=== PATIENT | male | born 1945 | race Caucasian/White ===

== ENCOUNTER 2022-02-12 09:05 | Inpatient (IN) | payer MEDICARE, OTHER ==
[~2022-02-12] VITALS: Ht 165.1 cm; Wt 91.2 kg
--- NOTE | 2022-02-12 09:07 | NUR ---
RECIVED PT AWAKE AND ALERT CAME FROM HD CENTER C/O N/V AND CHEST PAIN AFTER COMPLET HD
--- NOTE | 2022-02-12 09:08 | NUR ---
TELE PEER HEALTH PROMOTER AT BEDSIDE.
--- NOTE | 2022-02-12 09:10 | NUR ---
AT BEDSIDE FOR EVAL.
[2022-02-12] MEDS ORDERED: ONDANSETRON HCL/PF 4 MG/2 ML VIAL ONE (09:20)
--- NOTE | 2022-02-12 09:20 | NUR ---
PT HAD PREMACATHER ON LT SUBCLEAVIN
--- NOTE | 2022-02-12 09:25 | NUR ---
EKG DONE AT BED BLOOD DROW AND SENT TO LAB
[2022-02-12] MEDS ORDERED: ONDANSETRON HCL/PF - ER 4 MG/2 ML VIAL IV ONE (09:30)
[2022-02-12 09:34] LABS: BASOPHILS # (AUTO) 0.1 K/uL (0.0-0.2); BASOPHILS % (AUTO) 0.8 % (0.0-2.0); EOSINOPHILS % (AUTO) 5.2 % (0.0-6.0); HEMATOCRIT 37 % (39-51); HEMOGLOBIN 12.7 g/dL (13.5-17.5); LYMPHOCYTES # (AUTO) 2.3 K/uL (0.8-4.8); LYMPHOCYTES % (AUTO) 27.2 % (20.0-44.0); MEAN CORPUSCULAR HGB CONC 34 g/dl (31.0-36.0); MEAN CORPUSCULAR VOLUME 88 fL (80-96); MONOCYTES # (AUTO) 0.5 K/uL (0.1-1.30); MONOCYTES % (AUTO) 5.7 % (2.0-12.0); NEUTROPHILS # (AUTO) 5.1 K/uL (1.8-8.9); NEUTROPHILS % (AUTO) 61.1 % (43.0-81.0); PLATELET COUNT (AUTO) 208 K/uL (150-450); WHITE BLOOD COUNT (AUTO) 8.3 K/uL (4.3-11.0)
[2022-02-12 09:41] LABS: CALCIUM, SERUM 8.3 mg/dL (8.5-10.1); CARBON DIOXIDE 29 mmol/L (21-32); CHLORIDE 102 mmol/L (98-107); GLUCOSE 115 mg/dL (74-106); POTASSIUM 3.7 mmol/L (3.5-5.1); SODIUM SERUM 141 mmol/L (136-145); UREA NITROGEN, BLOOD 40 mg/dL (7-18)
--- NOTE | 2022-02-12 09:52 | NUR ---
ACUTE CARE PHYSICIAN AT BEDSIDE
--- NOTE | 2022-02-12 10:05 | NUR ---
RAPID COVID SWAB DONE AND SENT TO LAB
--- NOTE | 2022-02-12 10:17 | NUR ---
ABI FOR LAB REASULT
--- NOTE | 2022-02-12 10:48 | NUR ---
PAGED EPIC MANAGER ACCESS.
[2022-02-12] MEDS ORDERED: ISOS10TA2 PO (10:50)
[2022-02-12] MEDS ORDERED: TICA90TA PO (10:50)
[2022-02-12] MEDS ORDERED: HYDR-4075 PO (10:50)
[2022-02-12] MEDS ORDERED: METO25TA4 PO (10:50)
[2022-02-12] MEDS ORDERED: SEVE800T8 PO (10:50)
[2022-02-12] MEDS ORDERED: ATOR40TA PO (10:50)
[2022-02-12] MEDS ORDERED: AMLO-212 PO (10:50)
[2022-02-12] MEDS ORDERED: FENO145T21 PO (10:50)
[2022-02-12] MEDS ORDERED: ASPI-1169 PO (10:50)
[2022-02-12] MEDS ORDERED: NITR0.4T48 PO (10:50)
[2022-02-12] MEDS ORDERED: CINA30TA6 PO (10:54)
--- NOTE | 2022-02-12 11:03 | NUR ---
ABI FOR LAB RESULT AND DISPO
[2022-02-12] MEDS ORDERED: ACETAMINOPHEN 325 MG TABLET PO PRN (11:30)
[2022-02-12] MEDS ORDERED: ONDANSETRON HCL/PF 4 MG/2 ML VIAL IVP PRN (11:30)
[2022-02-12] MEDS ORDERED: HEPARIN SODIUM, PORCINE 5000 UNITS/1 ML VIAL SQ SCH (11:30)
--- NOTE | 2022-02-12 11:36 | NUR ---
MRSA SENT TO LAB
--- NOTE | 2022-02-12 11:55 | NUR ---
SISTER AT BED SIDE CONDITION UP DATE
[2022-02-12] MEDS ORDERED: ASPIRIN 325 MG TABLET ONE (11:59)
[2022-02-12] MEDS ORDERED: ASPIRIN 325 MG TABLET PO ONE (12:00)
--- NOTE | 2022-02-12 12:06 | NUR ---
ROOM [facility]
--- NOTE | 2022-02-12 12:13 | NUR ---
GOING TO ROOM 321 TELMETER AND HAND OF TO CLARENCE RN VS STABLE NO CHEST PAIN
--- NOTE | 2022-02-12 12:18 | NUR ---
ECC CARDIO GRAM DONE AT BED SIDE
[2022-02-12] MEDS ORDERED: NITROGLYCERIN 0.4 MG/TAB BOTTLE SL PRN (12:30)
--- NOTE | 2022-02-12 13:00 | NUR ---
ORDER EXPEDITER ADMITTING NOTES: ADMITTED A 76YO MALE PATIENT TO UNIT @1300 VIA GURNEY ACCOMPANIED BY ER TRANSPORTER. SISTER AT BED SIDE METEOROLOGICAL AIDE.WITH DX TO RULE OUT ACS. NO SOB NOTED, ON ROOM AIR, NOTED WITH NORMAL UNLABORED BREATHING PATTERN, PATIENT VERBALIZED HE HAS TOLERABLE CHEST PAIN AT THIS TIME, PATIENT DID NOT ASK FOR PAIN MEDS. PATIENT ALERT AND ORIENTED X3 AND ABLE TO VERBALIZED NEEDS. ORIENTED TO STAFFS AND UNIT, DEMONSTRATED HOW TO USE CALL LIGHT AND BED CONTROL PATIENT VERBALIZED UNDERSTANDING. PATIENT NOTED WITH IV ACCESS ON RIGHT HAND G#20 SALINE LOCKED, PATENT,INTACT AND FLUSHES WELL. ABDOMEN SOFT AND NON-TENDER, BOWEL SOUNDS PRESENT ON 4 QUADRANTS, LUNG SOUND CLEAR UPON AUSCULTATION. SKIN IS WARM AND DRY. SKIN IS INTACT, NOTED WITH RIGHT UPPER CHEST PERMACATH FOR HD.ON EXTERNAL TERRITORY SERVICE REPRESENTATIVE WITH CURRENT READING SINUS RHYTHM @88 BPM. SAFETY MEASURES IMPLEMENTED: BED PLACED IN LOWEST AND LOCKED POSITION, SIDE RAILS UP X 2. BED SIDE AND CALL LIGHT IN EASY REACH. WILL MONITOR PATIENT ACCORDINGLY. KEPT RESTED AND COMFORTABLE.
[2022-02-12] MEDS: hydrALAZINE HCL 10 MG TABLET PO SCH ×2 (13:15→17:11)
[2022-02-12] MEDS: SEVELAMER CARBONATE 800 MG TABLET PO SCH ×2 (13:16→17:12)
[2022-02-12] MEDS: ISOSORBIDE DINITRATE (10MG) 10 MG TABLET PO SCH ×2 (13:16→17:13)
[2022-02-12 14:01] VITALS: BP 152/100
[2022-02-12 16:00] VITALS: BP 132/83
[2022-02-12] MEDS: TICAGRELOR 90 MG TABLET PO SCH (17:10)
[2022-02-12] MEDS: ATORVASTATIN 40 MG TABLET PO SCH (17:12)
--- NOTE | 2022-02-12 18:00 | NUR ---
RN NOTES: MS NAVARRO, ABLE TO EXPLAIN THE PROCEDURE (CTCA) AND SIGNED CONSENT. SIGNED CONSENT SECURED IN PT'S CHART.
--- NOTE | 2022-02-12 18:56 | NUR ---
DROP WIRE ALIGNER CLOSING NOTES: PATIENT IN BED WITH AT BED SIDE AT THIS TIME, WALLISIAN SPEAKING ABLE TO UNDERSTAND AND SPEAK A LITTLE BIT BELARUSIAN. A/O X3, ABLE TO VERBALIZED NEEDS. NO SOB OR CARDIAC DISTRESS NOTED, ON ROOM AIR AND TOLERATING WELL. NOTED WITH RUC IJ TUNNEL CATHETER FOR HD INTACT. IV ACCESS ON RIGHT HAND G#20 PATENT AND INTACT, FLUSHES WELL. DENIES ANY PAIN AT THIS TIME. SAFETY PRECAUTIONS MAINTAINED: BED IN LOWEST AND LOCKED POSITION, SIDE RAILS UP X2. CALL LIGHT AND BED SIDE TABLE IN EASY REACH. ENDORSED TO SHAMPOO TECHNICIAN NURSE FOR CONTINUITY OF CARE.
--- NOTE | 2022-02-12 19:33 | NUR ---
RN NOTES: CALLED RADIOLOGY DEPT, SPOKE TO GROVER REGARDING PT'S CTCA- PER STRATEGIC COMMUNICATIONS MANAGER FOLLOW UP IN AM TOMORROW,ENDORSED TO NIGHT NURSE VINH.
--- NOTE | 2022-02-12 19:42 | NUR ---
RN OPENING NOTE PATIENT AWAKE IN BED, SPOUSE AT BEDSIDE. A/OX4. NO S/S OF DISTRESS, BREATHING W/O DIFFICULTY ON ROOM AIR. R-HAND #20 SL INTACT AND PATENT. TELE MONITOR REVEALS SR82. SAFETY MEASURES IN PLACE: BED LOCKED, AT LOWEST POSITION, RAILS UP X3, CALL SMITH WITHIN REACH. WILL CONTINUE TO MONITOR PATIENT. Addendum: 02/12/22 at 1954 by VINH LOPEZ RN CORRECTION: TELE MONITOR REVEALS SR 96
[2022-02-12 20:00] VITALS: BP 143/80
--- NOTE | 2022-02-12 23:15 | NUR ---
RN NOTE LAB CONTACTED RN TO REPORT TROPONIN RESULT OF 76. ON-CALL MD, DR. PARTIDA, NOTIFIED. PATIENT IS ALREADY SCHEDULED FOR ASPIRIN 81MG MED TREATMENT. MD ORDERS ARE TO REPEAT TROPONIN IN SIX (6) HOURS FROM LAST (SCHEDULED FOR 0400). PATIENT IS ON TELE MONITOR SR 77. NO CHEST PAIN OR ANY OTHER PAIN REPORTED BY PATIENT. PATIENT HAS BEEN IN PLEASANT MOOD. NO DIAPHORESIS PRESENT. WILL CONTINUE TO MONITOR PATIENT.
[2022-02-12 23:36] VITALS: BP 154/95
--- NOTE | 2022-02-13 01:00 | NUR ---
RN NOTE PATIENT NOTIFIED THIS RN THAT HE FELT SOMEWHAT SOB. OXIMETER WAS APPLIED AND REVEALED 96% ON ROOM AIR (PATIENT'S BASELINE). PATIENT REPORTED SOB BEGAN AROUND 0050. BP HAS BEEN STABLE W/ SBP AT 2000 BEING 150s AND 0000 BEING 140s. PATIENT IS NON-DIAPHORETIC. NO COMPLAINTS OF CHEST PAIN, HEADACHE, OR DIZZINESS. ELEVATED HOB TO PROMOTE EASEFUL BREATHING. PATIENT STATES HE IS OTHERWISE "OKAY". PATIENT ALREADY HAS MEDS IN PLACE FOR ANY POSSIBLE OCCURRENCES THAT WARRANT MED INTERVENTION; ELEVATED TROPONIN (76) ALREADY NOTIFIED TO ON-CALL MD. WILL CONTINUE TO MONITOR PATIENT.
[2022-02-13 04:04] VITALS: BP 148/95
[2022-02-13 05:32] LABS: BASOPHILS # (AUTO) 0.1 K/uL (0.0-0.2); BASOPHILS % (AUTO) 0.8 % (0.0-2.0); EOSINOPHILS % (AUTO) 4.6 % (0.0-6.0); HEMATOCRIT 37 % (39-51); HEMOGLOBIN 12.4 g/dL (13.5-17.5); LYMPHOCYTES # (AUTO) 2.6 K/uL (0.8-4.8); LYMPHOCYTES % (AUTO) 29.4 % (20.0-44.0); MEAN CORPUSCULAR HGB CONC 34 g/dl (31.0-36.0); MEAN CORPUSCULAR VOLUME 89 fL (80-96); MONOCYTES # (AUTO) 0.5 K/uL (0.1-1.30); MONOCYTES % (AUTO) 6.2 % (2.0-12.0); NEUTROPHILS # (AUTO) 5.2 K/uL (1.8-8.9); PLATELET COUNT (AUTO) 205 K/uL (150-450); RED BLOOD CELL COUNT(AUTO) 4.15 MIL/uL (4.5-6.0); WHITE BLOOD COUNT (AUTO) 8.9 K/uL (4.3-11.0)
[2022-02-13 05:43] LABS: CARBON DIOXIDE 28 mmol/L (21-32); CHLORIDE 105 mmol/L (98-107); CREATININE 6.9 mg/dL (0.6-1.3); GLUCOSE 96 mg/dL (74-106); MAGNESIUM 2.2 mg/dL (1.8-2.4); PHOSPHORUS 5.9 mg/dL (2.5-4.9); POTASSIUM 3.8 mmol/L (3.5-5.1); SODIUM SERUM 142 mmol/L (136-145); UREA NITROGEN, BLOOD 51 mg/dL (7-18)
--- NOTE | 2022-02-13 05:56 | NUR ---
RN NOTE LAB NOTIFIED THIS RN PATIENT'S NEWEST TROPONIN IS 80 (AND INCREASE FROM 2200's 76). ON-CALL MD, DR. PARTIDA, NOTIFIED. PATIENT IS SCHEDULED FOR ASPIRIN 81MG THIS MORNING @0900. MD ORDERED ANOTHER TROPONIN SIX (6) HOURS AFTER LAST (SCHEDULED FOR 1000 THIS MORNING). PATIENT HAS BEEN CLOSELY MONITORED. VS WNL; PATIENT DENIES CHEST PAIN, HEADACHE, DIZZINESS, AND IS NON-DIAPHORETIC. WILL CONTINUE TO MONITOR PATIENT.
[2022-02-13 06:06] LABS: CHOLESTEROL 260 mg/dL (<200); HDL CHOLESTEROL 42 mg/dL (40-60); LDL 158 mg/dL (0-99); TRIGLYCERIDES 232 mg/dL (30-150)
--- NOTE | 2022-02-13 07:30 | NUR ---
TELE OPENING NOTE PATIENT AWAKE IN BED. A/OX4. NO S/S OF DISTRESS/SOB ON ROOM AIR, TOLERATING WELL. R- HAND #20 SL INTACT AND PATENT. TELE MONITOR @ SR82. SAFETY MEASURES IN PLACE: BED LOCKED, AT LOWEST POSITION, RAILS UP X3, CALL SMITH WITHIN REACH. WILL CONTINUE TO MONITOR PATIENT.
--- NOTE | 2022-02-13 07:34 | NUR ---
RN CLOSING NOTE PATIENT ASLEEP IN BED. A/OX4. NO S/S OF DISTRESS, BREATHING W/O DIFFICULTY ON ROOM AIR. R-HAND #20 SL INTACT AND PATENT. TELE MONITOR REVEALS SB 59. SAFETY MEASURES IN PLACE: BED AT LOWEST POSITION, LOCKED, RAILS UP X2, CALL SMITH WITHIN REACH. REPORT GIVEN TO AND ACKNOWLEDGED BY DAY SHIFT RNEWA.
[2022-02-13] MEDS: CINACALCET HCL 30 MG TABLET PO SCH (09:10)
[2022-02-13] MEDS: SEVELAMER CARBONATE 800 MG TABLET PO SCH ×3 (09:12→17:16)
[2022-02-13] MEDS: ASPIRIN 81 MG TAB.CHEW PO SCH (09:12)
[2022-02-13] MEDS: AMLODIPINE BESYLATE 5 MG TABLET PO SCH (09:14)
[2022-02-13] MEDS: ISOSORBIDE DINITRATE (10MG) 10 MG TABLET PO SCH ×3 (09:14→17:17)
[2022-02-13] MEDS: hydrALAZINE HCL 10 MG TABLET PO SCH ×4 (09:15→17:18)
[2022-02-13] MEDS: TICAGRELOR 90 MG TABLET PO SCH ×2 (09:17→17:19)
[2022-02-13] MEDS: FENOFIBRATE NANOCRYS (145 MG) 145 MG TABLET PO SCH (09:19)
[2022-02-13] MEDS: METOPROLOL SUCCINATE 25 MG TAB.SR.24H PO SCH (09:20)
--- NOTE | 2022-02-13 10:05 | NUR ---
RIGGING LOFT MECHANIC NOTE: PT DROPPED MEDICATION ON THE FLOOR, MEDICATION DISCARDED PER FACILITY PROTOCOL, ANOTHER MED WAS PULLED FROM [facility] AND ADMINISTERED TO PT.
--- NOTE | 2022-02-13 10:50 | NUR ---
SERVICE ORDER CLERK NOTE PATIENT SEEN BY DR. MIRELES.
--- NOTE | 2022-02-13 11:50 | NUR ---
SYSTEM SUPPORT DEVELOPER NOTE SEEN BY DR. GORDON
--- NOTE | 2022-02-13 17:05 | NUR ---
RULING MACHINE SET UP OPERATOR NOTE BRILINTA 90 MG DROPPED BY RN ON FLOOR BY ACCIDENT, PULLED ANOTHER DOSE FROM PT CASSETTE, NOTIFIED PHARMACY FOR REPLACEMENT, DISPOSED MEDICATION PER HOSP PROTOCOL.
[2022-02-13] MEDS: ATORVASTATIN 40 MG TABLET PO SCH (17:18)
--- NOTE | 2022-02-13 19:28 | NUR ---
TELE OPENING NOTE PATIENT AWAKE IN BED. A/OX4. NO S/S OF DISTRESS/SOB ON ROOM AIR, TOLERATING WELL. R- HAND #20 SL INTACT AND PATENT. PT REFUSING TELE MONITOR AT THIS TIME.. SAFETY MEASURES IN PLACE: BED LOCKED, AT LOWEST POSITION, RAILS UP X3, CALL SMITH WITHIN REACH. WILL CONTINUE TO MONITOR PATIENT. Addendum: 02/13/22 at 1932 by SHARONA MORA RN PT HAS TELE MONITOR ON AT THIS TIME.
--- NOTE | 2022-02-13 19:38 | NUR ---
TELE CLOSING NOTE PATIENT AWAKE IN BED. A/OX4. NO S/S OF DISTRESS/SOB ON ROOM AIR, TOLERATING WELL. R- HAND #20 SL INTACT AND PATENT. TELE MONITOR @ SR82. SAFETY MEASURES IN PLACE: BED LOCKED, AT LOWEST POSITION, RAILS UP X3, CALL SMITH WITHIN REACH. WILL ENDORSE TO NEXT SHIFT FOR CONTINUITY OF CARE.
[2022-02-13 20:02] VITALS: BP 134/76
[2022-02-14 00:44] VITALS: BP 129/70
[2022-02-14 04:16] VITALS: BP 152/89
[2022-02-14 06:31] LABS: BASOPHILS # (AUTO) 0.1 K/uL (0.0-0.2); BASOPHILS % (AUTO) 0.6 % (0.0-2.0); EOSINOPHILS % (AUTO) 5.5 % (0.0-6.0); HEMATOCRIT 37 % (39-51); HEMOGLOBIN 12.5 g/dL (13.5-17.5); LYMPHOCYTES # (AUTO) 2.7 K/uL (0.8-4.8); LYMPHOCYTES % (AUTO) 28.6 % (20.0-44.0); MEAN CORPUSCULAR HGB CONC 34 g/dl (31.0-36.0); MEAN CORPUSCULAR VOLUME 89 fL (80-96); MONOCYTES # (AUTO) 0.7 K/uL (0.1-1.30); MONOCYTES % (AUTO) 7.2 % (2.0-12.0); NEUTROPHILS # (AUTO) 5.4 K/uL (1.8-8.9); NEUTROPHILS % (AUTO) 58.1 % (43.0-81.0); PLATELET COUNT (AUTO) 203 K/uL (150-450); RED BLOOD CELL COUNT(AUTO) 4.17 MIL/uL (4.5-6.0); WHITE BLOOD COUNT (AUTO) 9.3 K/uL (4.3-11.0)
--- NOTE | 2022-02-14 06:49 | NUR ---
TELE CLOSING NOTE PATIENT AWAKE IN BED. A/OX4. NO S/S OF DISTRESS/SOB ON ROOM AIR, TOLERATING WELL. R- HAND #20 SL INTACT AND PATENT. TELE MONITOR @ SR 80S. SAFETY MEASURES IN PLACE: BED LOCKED, AT LOWEST POSITION, RAILS UP X3, CALL SMITH WITHIN REACH. WILL ENDORSE TO NEXT SHIFT FOR CONTINUITY OF CARE.
[2022-02-14 07:03] LABS: CALCIUM, SERUM 7.9 mg/dL (8.5-10.1); CARBON DIOXIDE 24 mmol/L (21-32); CHLORIDE 105 mmol/L (98-107); GLUCOSE 94 mg/dL (74-106); MAGNESIUM 2.3 mg/dL (1.8-2.4); PHOSPHORUS 6.1 mg/dL (2.5-4.9); POTASSIUM 3.9 mmol/L (3.5-5.1); SODIUM SERUM 143 mmol/L (136-145); UREA NITROGEN, BLOOD 65 mg/dL (7-18)
--- NOTE | 2022-02-14 07:20 | NUR ---
SUCTION PLATE ROLLER HAND OPENING NOTE RECEIVED PATIENT ASLEEP IN BED, EASILY AROUSE. A/OX4, ABLE TO MAKE NEEDS KNOWN. ON RA, TOLERATING WELL. BREATHING EVEN AND UNLABORED. NOT IN ANY SIGN OF DISTRESS. R- HAND G #20 SL INTACT AND PATENT. R CHEST PERMA CATH INTACT. SAFETY MEASURES IN PLACE: BED LOCKED, AT LOWEST POSITION, RAILS UP X3, CALL SMITH WITHIN REACH. WILL CONTINUE TO MONITOR PATIENT. Addendum: 02/14/22 at 0734 by MARGE BECKETT RN ADDENDUM ON TELE TRAINING INTERN WITH CURRENT READING OF SR, HR 60. NO COMPLAINS OF CARDIAC DISCOMFORT OR DISTRESS VOICED AT THIS TIME.
[2022-02-14 07:44] LABS: CREATININE 8.2 mg/dL (0.6-1.3)
[2022-02-14 08:00] VITALS: BP 159/75
[2022-02-14] MEDS: FENOFIBRATE NANOCRYS (145 MG) 145 MG TABLET PO SCH (08:23)
[2022-02-14] MEDS: CINACALCET HCL 30 MG TABLET PO SCH (08:23)
[2022-02-14] MEDS: SEVELAMER CARBONATE 800 MG TABLET PO SCH ×3 (08:24→17:53)
[2022-02-14] MEDS: TICAGRELOR 90 MG TABLET PO SCH ×2 (08:30→17:55)
--- NOTE | 2022-02-14 08:30 | NUR ---
RN NOTE RECEIVED A CALL FROM [employer] AT 0743 REPORTED CRITICAL LAB VALUE OF CREATININE AT 8.2. DR. GORDON MADE OF AWARE OF CRITICAL LAB WITH NO NEW ORDER AT THIS TIME.
[2022-02-14] MEDS: ASPIRIN 81 MG TAB.CHEW PO SCH (09:13)
[2022-02-14] MEDS: ISOSORBIDE DINITRATE (10MG) 10 MG TABLET PO SCH ×3 (09:30→17:53)
[2022-02-14] MEDS: METOPROLOL SUCCINATE 25 MG TAB.SR.24H PO SCH (09:31)
[2022-02-14] MEDS: AMLODIPINE BESYLATE 5 MG TABLET PO SCH (09:31)
[2022-02-14] MEDS: hydrALAZINE HCL 10 MG TABLET PO SCH ×3 (09:32→17:53)
[2022-02-14 12:00] VITALS: BP 136/79
--- NOTE | 2022-02-14 14:04 | NUR ---
RN NOTE HYDRALAZINE AND ISOSORBIDE DUE AT 1300 NOT ADMINISTERED. PT IS ON ONGOING DIALYSIS.
--- NOTE | 2022-02-14 15:58 | NUR ---
RN NOTE PT COMPLAINED OF CHEST PAIN DURING HD. BLOOD PRESSURE WAS 165/118, HR 89. OXYGEN AT 2 LITERS/MIN VIA NASAL CANNULA APPLIED. SPO2 AT 94%. NITROGLYCERIN GIVEN O.4MG 1 TAB. AT 1545 AND EFFECTIVE AFTER 5MINUTES AT 1550. CURRENT BLOOD PRESSURE 103/78, HR 79. DR. GORDON MADE AWARE.
[2022-02-14 16:00] VITALS: BP 149/91
[2022-02-14] MEDS: ATORVASTATIN 40 MG TABLET PO SCH (17:52)
--- NOTE | 2022-02-14 19:29 | NUR ---
COMMUNICATIONS WRITER CLOSING NOTE PATIENT AWAKE IN BED WITH SISTER AT BEDSIDE. A/OX4, ABLE TO MAKE NEEDS KNOWN. ON RA, TOLERATING WELL. BREATHING EVEN AND UNLABORED. NOT IN ANY SIGN OF DISTRESS. ON TELE DEVOPS CONSULTANT WITH CURRENT READING OF NORMAL SR, HR 67. NO COMPLAINS OF CARDIAC DISCOMFORT OR DISTRESS VOICED AT THIS TIME. R- HAND G #20 SL INTACT AND PATENT. R CHEST PERMA CATH INTACT. ALL NEEDS ATTENDED. SAFETY MEASURES IN PLACE: BED LOCKED, AT LOWEST POSITION, RAILS UP X3, CALL SMITH WITHIN REACH. ENDORSED TO PORT SURVEYOR NURSE FOR SAMANTHA.
[2022-02-14 20:00] VITALS: BP 147/84
--- NOTE | 2022-02-14 20:05 | NUR ---
CERTIFIED FRAUD EXAMINER OPENING NOTES: RECEIVED PATIENT AWAKE IN BED , BED IN LOW POSITION CALL LIGHTS WITHIN REACH NO COMPLAIN OF PAIN AND DISCOMFORT AT THIS TIME ON ROOM AIR SATURATING WELL, ON TELE MONITORING SR-70, ON MONITORING FOR CHEST PAIN, WITH IV LINE AT RT HAND #20 SL ON HD TTH WITH RT CHEST PERMA CATH, HD DONE TODAY WITH 1500CC OUTPUT INTERRUPTED DUE TO CHEST PAIN, PATIENT KEPT CLEAN AND DRY ALL NEEDS MET WILL CONTINUE TO MONITOR.
--- NOTE | 2022-02-14 22:08 | NUR ---
RN NOTES: 2199 PATIENT WAS MOANING AND WE I CAME IN PATIENT WAS COMPLAINING OF PAIN WHILE WOOD CUT ENGRAVER CHECKS THE V/S BP-173/87 HE TOOK NITROGLYCERINE SUBLINGUAL AT 2004 WHILE CHECKING THE BP, PT HAS ONE IN POCKET, WAS RELIEVE WITH BP-147/87 HR-107, CALL CN TO CONVINCE PATIENT TO TURNOVER THE MEDICINE AND LET THE NURSE TAKE CARE OF IT EXPLAIN RISK AND BENEFITS BUT PATIENT REFUSED CN LOU WAS WITH ME WHEN ASKED FOR PATIENT MEDICINE, PATIENT WAS RELIEVE WITH PAIN WILL CONTINUE TO MONITOR
[2022-02-15] VITALS: BP 135/94
[2022-02-15 04:00] VITALS: BP 139/86
--- NOTE | 2022-02-15 07:01 | NUR ---
BUILDER OPERATOR CLOSING NOTES: PATIENT SLEEP IN BED COMFORTABLY, BED IN LOW POSITION, CALL LIGHTS WITHIN REACH, NO COMPLAIN OF PAIN AND DISCOMFORT AT THIS TIME, ON ROOM AIR SATURATING WELL, ON TELE MONITORING SR-60- WITH RIGHT PERMA CATH HD CLEAN AND DRY, PATIENT PLACE ON NPO FOR CT ANGIO, KEPT CLEAN AND DRY ALL NEEDS MET, ENDORSE TO INCOMING SHIFT.
--- NOTE | 2022-02-15 07:26 | NUR ---
SYSTEMS INTEGRATION ADVISOR OPENING NOTE RECEIVED PATIENT AWAKE IN BED IN NO ACUTE SIGNS OF DISTRESS. A/OX4. CITIZEN OF [place] SPEAKING, DENIES PAIN OR ANY DISCOMFORTS AT THIS TIME. ON RA, TOLERATING WELL, BREATHING EVEN AND UNLABORED, IV ACCESS ON R- HAND G #20 SL INTACT AND PATENT. RIGHT CHEST PERMA CATH INTACT. SAFETY MEASURES IN PLACED: BED LOCKED, AND AT LOWEST POSITION, RAILS UP X2, CALL SMITH WITHIN REACH. WILL CONTINUE TO MONITOR PATIENT. Addendum: 02/15/22 at 0740 by DELLA RAJAN RN ADDENDUM; PT ON EXTERNAL POOLROOM/POOLHALL MANAGER WITH CURRENT READING OF NSR, HR 61, NO C/O CARDIAC DISTRESS VOICED AT THIS TIME.
[2022-02-15 08:00] VITALS: BP 143/85
[2022-02-15] MEDS: SEVELAMER CARBONATE 800 MG TABLET PO SCH ×3 (08:00→17:08)
[2022-02-15 08:12] LABS: CARBON DIOXIDE 21 mmol/L (21-32); CHLORIDE 103 mmol/L (98-107); CREATININE 7.3 mg/dL (0.6-1.3); GLUCOSE 104 mg/dL (74-106); MAGNESIUM 2.3 mg/dL (1.8-2.4); POTASSIUM 4.1 mmol/L (3.5-5.1); SODIUM SERUM 143 mmol/L (136-145); UREA NITROGEN, BLOOD 52 mg/dL (7-18)
[2022-02-15 08:30] LABS: PHOSPHORUS 6.3 mg/dL (2.5-4.9)
[2022-02-15] MEDS: hydrALAZINE HCL 10 MG TABLET PO SCH ×3 (09:19→17:09)
[2022-02-15] MEDS: ASPIRIN 81 MG TAB.CHEW PO SCH (09:19)
[2022-02-15] MEDS: ISOSORBIDE DINITRATE (10MG) 10 MG TABLET PO SCH ×3 (09:20→17:09)
[2022-02-15] MEDS: AMLODIPINE BESYLATE 5 MG TABLET PO SCH (09:20)
[2022-02-15] MEDS: CINACALCET HCL 30 MG TABLET PO SCH (09:20)
[2022-02-15] MEDS: FENOFIBRATE NANOCRYS (145 MG) 145 MG TABLET PO SCH (09:20)
[2022-02-15] MEDS: METOPROLOL SUCCINATE 25 MG TAB.SR.24H PO SCH (09:20)
[2022-02-15] MEDS: TICAGRELOR 90 MG TABLET PO SCH ×2 (09:21→17:09)
--- NOTE | 2022-02-15 10:11 | NUR ---
RN NOTES PT PICKED-UP FOR CTCA BY LEGAL OFFICER MOOSE VIA WHEELCHAIR.
[2022-02-15] MEDS ORDERED: IOHEXOL-350 100 ML VIAL IV ONE (10:18)
[2022-02-15] MEDS ORDERED: METOPROLOL TARTRATE INJ 5 MG/5 ML AMPUL ONE (10:18)
[2022-02-15] MEDS ORDERED: NITROGLYCERIN 0.4 MG/TAB BOTTLE ONE (10:18)
[2022-02-15] MEDS ORDERED: CT SWABBABLE VALVE TRANS SET 1 EA INFUS.SET MC ONE (10:19)
[2022-02-15] MEDS ORDERED: IV NS 0.9% 250 ML IV ONE (10:19)
[2022-02-15 12:00] VITALS: BP 114/66
[2022-02-15 16:00] VITALS: BP 137/81
[2022-02-15] MEDS: ATORVASTATIN 40 MG TABLET PO SCH (17:07)
--- NOTE | 2022-02-15 18:45 | NUR ---
SENIOR SQL SERVER DATABASE DEVELOPER CLOSING NOTE PATIENT AWAKE IN BED WATCHING TV. NO ACUTE SIGNS OF DISTRESS. A/OX4. [place] SPEAKING, DENIES PAIN OR ANY DISCOMFORTS AT THIS TIME. STABLE ON RA, TOLERATING WELL, BREATHING EVEN AND UNLABORED, IV ACCESS ON R- HAND G #20 SL INTACT AND PATENT. RIGHT CHEST PERMA CATH INTACT. TELE MONITOR CURRENTLY READING NSR 78, NO C/O CARDIAC DISTRESS. ALL DUE MEDS GIVEN. SAFETY MEASURES MAINTAINED: BED LOCKED, AND AT LOWEST POSITION, RAILS UP X2, CALL SMITH WITHIN REACH. WILL CONTINUE TO MONITOR PATIENT. WILL ENDORSE TO NEXT SHIFT FOR SAMANTHA.
--- NOTE | 2022-02-15 19:21 | NUR ---
WIRE STITCHER OPERATOR OPENING RECEIVED PATIENT IN BED, A/OX4, GERMAN SPEAKING. 2 FAMILY MEMBERS AT BEDSIDE AT THIS TIME. NO S/S OF APPARENT DISTRESS IN ROOM AIR. DENIES PAIN AT THIS TIME. RCW PERMACATH NOTED TO BE INTACT. NO FLUIDS RUNNING AT THIS TIME. RE-ORIENTED AND ENCOURAGED WITH THE USE OF CALL LIGHT. SAFETY IN PLACE. WILL CONTINUE WITH PLAN OF CARE FOR PATIENT. DIALYSIS NURSE, RICH CAME IN TO REMIND PATIENT ABOUT EARLY DIALYSIS TOMORROW AND FOR DISCHARGE AFTERWARDS. PATIENT AND FAMILY MEMBERS AWARE AND ACKNOWLEDGED PLAN FOR PATIENT.
[2022-02-15 20:00] VITALS: BP 126/62
[2022-02-16] VITALS: BP 136/74
[2022-02-16 04:00] VITALS: BP 136/74
--- NOTE | 2022-02-16 05:28 | NUR ---
DIESEL DRAGLINE OPERATOR NOTE PATIENT CURRENTLY GETTING DIALYZE. SNEHA VILLANUEVA RN AT BEDSIDE.
[2022-02-16 06:07] LABS: BASOPHILS # (AUTO) 0.1 K/uL (0.0-0.2); BASOPHILS % (AUTO) 0.8 % (0.0-2.0); EOSINOPHILS % (AUTO) 6.6 % (0.0-6.0); HEMATOCRIT 36 % (39-51); HEMOGLOBIN 12.1 g/dL (13.5-17.5); LYMPHOCYTES # (AUTO) 2.7 K/uL (0.8-4.8); LYMPHOCYTES % (AUTO) 42.4 % (20.0-44.0); MEAN CORPUSCULAR HGB CONC 34 g/dl (31.0-36.0); MEAN CORPUSCULAR VOLUME 89 fL (80-96); MONOCYTES # (AUTO) 0.3 K/uL (0.1-1.30); MONOCYTES % (AUTO) 4.4 % (2.0-12.0); NEUTROPHILS # (AUTO) 2.9 K/uL (1.8-8.9); NEUTROPHILS % (AUTO) 45.8 % (43.0-81.0); PLATELET COUNT (AUTO) 201 K/uL (150-450); RED BLOOD CELL COUNT(AUTO) 4.03 MIL/uL (4.5-6.0); WHITE BLOOD COUNT (AUTO) 6.5 K/uL (4.3-11.0)
[2022-02-16 06:24] LABS: CALCIUM, SERUM 7.9 mg/dL (8.5-10.1); CARBON DIOXIDE 24 mmol/L (21-32); CHLORIDE 101 mmol/L (98-107); CREATININE 6.5 mg/dL (0.6-1.3); GLUCOSE 94 mg/dL (74-106); MAGNESIUM 2.1 mg/dL (1.8-2.4); PHOSPHORUS 4.7 mg/dL (2.5-4.9); SODIUM SERUM 138 mmol/L (136-145); UREA NITROGEN, BLOOD 51 mg/dL (7-18)
[2022-02-16] MEDS ORDERED: HYDROCODONE/APAP 5/325MG TABLET PO PRN (06:45)
--- NOTE | 2022-02-16 06:45 | NUR ---
EXPANSION ENVELOPE MAKER HAND NOTE PATIENT CURRENTLY GETTING DIALYZE AND STARTED C/O 7/10 PAIN IN THE L.FLANK. MESSAGED VALIDATION CONSULTANT DOCTOR HELGA, AND DOCTOR ORDERED NORCO 5 Q6 PRN AND KUB X-RAY. KUB ORDERED AFTER DIALYSIS. AWAITING PHARMACY TO VERIFY MEDICATION.
--- NOTE | 2022-02-16 07:22 | NUR ---
FIBER MACHINE TENDER NOTE 300 CC OUT DURING DIALYSIS .
--- NOTE | 2022-02-16 07:25 | NUR ---
RN NOTES RECEIVED PATIENT IN BED, AWAKE, A/O X4, VERBALLY RESPONSIVE. NO SIGNS OF ACUTE DISTRESS NOTED. ON TELE MONITOR CURRENTLY SHOWING SINUS KIKE, HR @58. NO /O PAIN AT THIS TIME. WITH IV ACCESS ON RIGHT HAND #22G AND RIGHT WRIST #18G, INTACT AND PATENT SALINE LOCKED. SAFETY MEASURE IN PLACE, BED IN LOWEST AND LOCKED POSITION, SIDE RAILS UP X2, CALL LIGHT PLACED WITHIN EASY REACH. WILL CONTINUE TO MONITOR PATIENT.
--- NOTE | 2022-02-16 07:30 | NUR ---
ONLINE MARKETING DIRECTOR NOTE NEEDS ATTENDED. GAVE REPORT TO KADEN FOR CONTINUITY OF CARE.
[2022-02-16 08:00] VITALS: BP 137/79
[2022-02-16] MEDS: hydrALAZINE HCL 10 MG TABLET PO SCH (08:22)
[2022-02-16] MEDS: AMLODIPINE BESYLATE 5 MG TABLET PO SCH (08:22)
[2022-02-16] MEDS: CINACALCET HCL 30 MG TABLET PO SCH (08:22)
[2022-02-16] MEDS: SEVELAMER CARBONATE 800 MG TABLET PO SCH (08:22)
[2022-02-16] MEDS: FENOFIBRATE NANOCRYS (145 MG) 145 MG TABLET PO SCH (08:22)
[2022-02-16 08:23] VITALS: BP 139/79
[2022-02-16] MEDS: ASPIRIN 81 MG TAB.CHEW PO SCH (08:23)
[2022-02-16] MEDS: ISOSORBIDE DINITRATE (10MG) 10 MG TABLET PO SCH (08:23)
[2022-02-16] MEDS: METOPROLOL SUCCINATE 25 MG TAB.SR.24H PO SCH (08:23)
[2022-02-16] MEDS: TICAGRELOR 90 MG TABLET PO SCH (08:26)
[2022-02-16] MEDS ORDERED: SEVE800T7 PO (11:27)
--- NOTE | 2022-02-16 11:47 | NUR ---
MONITOR TECH NOTES PATIENT DISCHARGED TO HOME IN STABLE CONDITION. A/O X4, ABLE TO MAKE NEEDS KNOWN. VITAL SIGNS STABLE. ALL BELONGINGS ACCOUNTED FOR. FORM SIGNED BY PATIENT. IV ACCESS ON RIGHT HAND AND WRIST REMOVED, NO BLEEDING NOTED. PRESSURE DRESSING APPLIED. ARM NAME BAND REMOVED. HEALTH TEACHINGS AND DISCHARGE INSTRUCTIONS PROVIDED TO PATIENT WITH VERBALIZATION OF UNDERSTANDING. PATIENT LEFT UNIT @114 AMBULATORY, ACCOMPANIED PATIENT TO THE LOBBY, WILL BE PICKED UP BY SISTER TATYANA VIA PRIVATE CAR. CHARGE NURSE AWARE OF DISCHARGE.
== END 2022-02-16 11:45 | disposition home or self-care (01) | DRG 280 ==
LOC: ER 09:27 → MED 12:25 → TELE 15:52
PROVIDERS: ADMIT Nurse Practitioner Acute Care; ATTEND Nurse Practitioner Acute Care
PROC: 5A1D70Z Performance of Urinary Filtration, Intermittent, Less than 6 Hours Per Day (ICD-10-PCS; principal; 2022-02-14)
DX: I25.5 Ischemic cardiomyopathy (principal); I21.A1 Myocardial infarction type 2; N18.6 End stage renal disease; I12.0 Hypertensive chronic kidney disease with stage 5 chronic kidney disease or end stage renal disease; D68.59 Other primary thrombophilia; Z20.822 Contact with and (suspected) exposure to COVID-19; Z98.61 Coronary angioplasty status; Z79.82 Long term (current) use of aspirin; Z79.899 Other long term (current) drug therapy; K21.9 Gastro-esophageal reflux disease without esophagitis; I25.2 Old myocardial infarction; Z99.2 Dependence on renal dialysis; I25.10 Atherosclerotic heart disease of native coronary artery without angina pectoris; E66.01 Morbid (severe) obesity due to excess calories; E78.5 Hyperlipidemia, unspecified; D63.1 Anemia in chronic kidney disease; N14.1 Nephropathy induced by other drugs, medicaments and biological substances; T50.8X5A Adverse effect of diagnostic agents, initial encounter; Y92.9 Unspecified place or not applicable; Z68.33 Body mass index [BMI] 33.0-33.9, adult; E83.39 Other disorders of phosphorus metabolism
CPT/HCPCS: 36415; 71045-TC; 74018; 75574; 80048-TC; 80061-TC; 83735-TC; 84100-TC; 84484-TC; 85025-TC; 86706; 87040-TC; 87081-TC; 87340; 90935-TC; 93307-TC; 94799-TC; A6253; C9803; G0378; J2405; J3490; J7030; J7050; Q9967